=== PATIENT | female | born 1940 | race Two or more races ===

== ENCOUNTER 2019-07-31 12:37 | Inpatient (IN) | payer OTHER ==
[~2019-07-31] VITALS: Ht 121.9 cm; Wt 39.0 kg
[2019-08-15] MEDS ORDERED: LEVO-T25 MCG PO (12:27)
[2019-08-15] MEDS ORDERED: FORTAMET500 MG PO (12:27)
[2019-08-15] MEDS ORDERED: SIMVASTA PO (12:28)
[2019-08-15] MEDS ORDERED: ATACAND4 MG PO (12:30)
[2019-08-15] MEDS ORDERED: QUETIAPINE FUMA50 MG PO (12:32)
[2019-08-19] MEDS ORDERED: SIMVASTATIN20 MG PO (08:15)
[2019-08-19] MEDS ORDERED: SERTRALINE HCL100 MG PO (08:15)
[2019-08-19] MEDS ORDERED: RIVASTIGMINE1 EACH TD (08:16)
[2019-08-19] MEDS ORDERED: B-12500 MCG PO (08:18)
[2019-08-22] MEDS ORDERED: ACETAMINOPHEN500 M2 PO (12:30)
== END 2019-08-22 13:26 | disposition home or self-care (01) | DRG 331 ==
LOC: O/R 08-19 06:50 → SURH 08-19 07:00 → RECOVERY 08-19 09:30 → SURH 08-19 09:30 → EDBD 08-19 09:30 → SURH 08-19 13:06
PROVIDERS: ADMIT Surgery; ATTEND Surgery
PROC: 0DSP4ZZ Reposition Rectum, Percutaneous Endoscopic Approach (ICD-10-PCS; principal; 2019-08-19 07:00)
DX: K62.3 Rectal prolapse (principal); I10 Essential (primary) hypertension; E11.9 Type 2 diabetes mellitus without complications; E78.00 Pure hypercholesterolemia, unspecified